=== PATIENT | male | born 1990 | race African-American/Black ===

== ENCOUNTER 2022-06-27 15:32 | Emergency (ER) | payer OTHER ==
[2022-06-27 15:38] VITALS: BP 160/85; PULSE 54; RESP 18; TEMP 98.2; BMI 25.6
[2022-06-27 17:41] LABS: BASO % 0.3 % (0-2.0); EOS % 1.2 % (0-4.5); HEMATOCRIT 36.5 % (35.4-49); HEMOGLOBIN 12.2 GM/dL (11.7-16.9); LYMPH % 38.2 % (8-40); MCH 27.5 pg (25.7-33.7); MCHC 33.4 g/dl (32.0-35.9); MEAN CELL VOLUME 82.5 fl (80-96); MEAN PLT VOLUME 8.6 fl (7.5-11.1); NEUT % 53.3 % (42.8-82.8); PLATELET COUNT 255 10^3/uL (134-434); RBC 4.43 M/mm3 (4.00-5.60); WHITE BLOOD COUNT 8.2 K/mm3 (4.0-10.0)
[2022-06-27 18:09] LABS: CALCIUM 9.7 mg/dL (8.5-10.1)
[2022-06-27 18:10] LABS: ALBUMIN 4.1 g/dl (3.4-5.0)
[2022-06-27 18:11] LABS: BLOOD UREA NITROGEN 15.1 mg/dL (7-18)
[2022-06-27 18:13] LABS: URIC ACID 5.2 mg/dL (2.6-7.2)
[2022-06-27 18:14] LABS: PHOSPHOROUS 3.3 mg/dL (2.5-4.9)
[2022-06-27 18:15] LABS: TOT PROT 7.8 g/dl (6.4-8.2)
[2022-06-27 18:16] LABS: BILIRUBIN,TOTAL 0.5 mg/dL (0.2-1)
[2022-06-30 00:38] LABS: HIV INTERPRETATION NEGATIVE (NEGATIVE)
== END 2022-06-27 16:53 | disposition home or self-care (01) ==
LOC: JERFT 15:32
DX: S61.031A Puncture wound without foreign body of right thumb without damage to nail, initial encounter (principal); W46.0XXA Contact with hypodermic needle, initial encounter
CPT/HCPCS: 36415; 80053; 82465; 82977; 83615; 84100; 84478; 84550; 85025; 86704; 86803; 87340; 87389; 87517; 99283-25